=== PATIENT | male | born 1995 | race Caucasian/White ===

== ENCOUNTER 2018-10-04 07:54 | Outpatient (CLI) | payer OTHER ==
--- NOTE | 2018-10-04 09:20 | ULT ---
FOCUSED ULTRASOUND RIGHT BREAST: Date: 10/04/18 HISTORY: Pain and swelling. FINDINGS: Focused ultrasound of the retroareolar region obtained. In the area of palpable concern on the right, in the retroareolar region, there is thickened and slightly heterogeneous soft tissues, which primar ce appears to be in the region of the subcutaneous fat. There is no measureable mass. There is no sh adowing. There is also not finding which is consistent with gynecomastia. Etiology is thus nonspecifi c. IMPRESSION: Nonspecific soft tissue prominence and thickening of the subcutaneous fat in the area of concern. No measureable mass is appreciated. Etiology is uncertain. This may be inflammatory/infectious or post-t raumatic in nature. Follow-up imaging is essential to exclude a neoplastic process. CODE T. POS: OFF
== END 2018-10-04 07:55 | disposition home or self-care (01) ==
LOC: BICULT 07:54
DX: N64.4 Mastodynia (principal); N63.10 Unspecified lump in the right breast, unspecified quadrant

== ENCOUNTER 2018-10-07 13:25 | Outpatient (CLI) | payer OTHER | END 2018-10-07 13:26 | disposition home or self-care (01) | LOC: BICMAMMO 13:25 | DX: N64.4 Mastodynia (principal); N63.10 Unspecified lump in the right breast, unspecified quadrant; Z80.3 Family history of malignant neoplasm of breast | CPT/HCPCS: G0279 ==

== ENCOUNTER 2019-03-08 03:43 | Emergency (ER) | payer OTHER ==
[2019-03-08 04:13] LABS: #Basophils 0.1 thou/uL (0.0-0.2); #Eosinphils 0.2 thou/uL (0.0-0.7); #Lymphocytes 2.3 thou/uL (1.20-3.40); #Monocytes 0.7 thou/uL (0.11-0.59); #Neutrophils 7.4 thou/uL (1.40-6.50); %Basophils 0.7 % (0.0-1.0); %Eosinophils 1.7 % (0.0-10.0); %Lymphocytes 21.8 % (21.0-51.0); %Monocytes 6.1 % (0.0-10.0); %Neutrophils 69.6 % (42.0-75.0); Hemoglobin 15.5 g/dL (14.0-18.0); Mean Corpuscular HGB CONC 33.5 g/dL (32.0-36.0); Mean Corpuscular Hemoglobin 30.4 pg (27.0-31.0); Mean Corpuscular Volume 90.6 fL (78.0-98.0); Mean Platelet Volume 7.3 fL (7.4-10.4); Platelet Count 305 thou/uL (130-400); RBC Distribution Width 11.7 % (11.5-14.5); Red Blood Cell (RBC) Count 5.11 mill/uL (4.70-6.10); White Blood Cell (WBC) Count 10.6 thou/uL (4.8-10.8)
[2019-03-08 04:39] LABS: ALT (SGPT) 13 U/L (8-55); AST (SGOT) 19 U/L (5-34); Albumin 5.4 g/dL (3.5-5.0); Alkaline Phosphatase 68 U/L (40-150); Anion Gap 15 mmol/L (10-20); BUN (Urea Nitrogen) 12 mg/dL (8.9-20.6); Bilirubin, Total 0.4 mg/dL (0.2-1.2); Calc. Creatinine Clearance 0 mL/min (70-130); Calcium 10.7 mg/dL (7.8-10.44); Carbon Dioxide 27 mmol/L (22-29); Chloride 103 mmol/L (98-107); Estimated GFR-MDRD 77; Globulin 2.9 g/dL (2.4-3.5); Glucose 91 mg/dL (70-105); Lipase 34 U/L (8-78); Potassium 3.7 mmol/L (3.5-5.1); Protein, Total 8.3 g/dL (6.0-8.3); Sodium 141 mmol/L (136-145)
[2019-03-08 04:40] LABS: Bilirubin Negative (Negative); Blood, Urine Negative (Negative); Clarity TURBID (Clear); Glucose, Urine (Dipstick) Negative (Negative); Leukocyte Negative (Negative); Nitrite Negative (Negative); Protein, Urine (Dipstick) Negative (Neg-Trace); Urobilinogen 0.2 mg/dL (0.2-1.0)
[2019-03-08] MEDS ORDERED: Morphine 2 MG/ML SYRINGE ONE (04:48)
[2019-03-08] MEDS ORDERED: Ondansetron PF 4 MG/2 ML Vial ONE (04:48)
[2019-03-08] MEDS ORDERED: Ketorolac Tromethamine 30 MG/ML VIAL ONE (04:48)
[2019-03-08] MEDS ORDERED: Dicyclomine 20 MG TAB ONE (05:19)
[2019-03-08] MEDS ORDERED: Promethazine HCl 25 MG/ML VIAL ONE (05:19)
--- NOTE | 2019-03-08 06:37 | CT ---
CT ABDOMEN AND PELVIS WITH CONTRAST: INDICATIONS: Abdominal pain. COMPARISON: No prior comparison. FINDINGS: The lung bases are clear. No acute abnormality of the solid abdominal organs. There is no free air. The bowel is incompletely evaluated without enteric contrast. Nonspecific mild enlargement of mese nteric lymph nodes is present. No evidence of ascites. The abdominal aorta is normal in caliber. T he osseous structures are intact. IMPRESSION: 1. Mild nonspecific prominence of mesenteric lymph nodes. This can be seen in the setting of mesent екатерина adenitis. Correlate clinically. 2. Incomplete assessment of bowel without enteric contrast. POS: NWK
[2019-03-08] MEDS ORDERED: Fentanyl 100 MCG/2 ML VIAL ONE (07:00)
== END 2019-03-08 07:05 | disposition home or self-care (01) ==
LOC: ERS 03:43
DX: I88.0 Nonspecific mesenteric lymphadenitis (principal)
CPT/HCPCS: 74177; 80053; 81003; 83690; 85025; 96365; 96375; J1885; J2270; J2405; J2550; J3010

== ENCOUNTER 2019-03-14 10:38 | Emergency (ER) | payer OTHER ==
[2019-03-14 11:15] LABS: #Basophils 0.1 thou/uL (0.0-0.2); #Eosinphils 0.2 thou/uL (0.0-0.7); #Lymphocytes 2.3 thou/uL (1.20-3.40); #Monocytes 0.5 thou/uL (0.11-0.59); #Neutrophils 3.5 thou/uL (1.40-6.50); %Basophils 1.5 % (0.0-1.0); %Eosinophils 2.8 % (0.0-10.0); %Lymphocytes 35.1 % (21.0-51.0); %Monocytes 8.2 % (0.0-10.0); %Neutrophils 52.5 % (42.0-75.0); Hemoglobin 15.8 g/dL (14.0-18.0); Mean Corpuscular HGB CONC 32.8 g/dL (32.0-36.0); Mean Corpuscular Hemoglobin 29.3 pg (27.0-31.0); Mean Corpuscular Volume 89.2 fL (78.0-98.0); Platelet Count 313 thou/uL (130-400); RBC Distribution Width 11.5 % (11.5-14.5); White Blood Cell (WBC) Count 6.6 thou/uL (4.8-10.8)
[2019-03-14 11:30] LABS: Bilirubin Negative (Negative); Blood, Urine Negative (Negative); Clarity CLEAR (Clear); Glucose, Urine (Dipstick) Negative (Negative); Leukocyte Negative (Negative); Nitrite Negative (Negative); Protein, Urine (Dipstick) Negative (Neg-Trace); Specific Gravity, Urine 1.017 (1.002-1.036); Urobilinogen 0.2 mg/dL (0.2-1.0); pH, Urine 5.5 (5.0-9.0)
[2019-03-14 11:39] LABS: ALT (SGPT) 15 U/L (8-55); AST (SGOT) 19 U/L (5-34); Albumin 5.2 g/dL (3.5-5.0); Alkaline Phosphatase 67 U/L (40-150); Anion Gap 13 mmol/L (10-20); BUN (Urea Nitrogen) 11 mg/dL (8.9-20.6); Bilirubin, Total 0.8 mg/dL (0.2-1.2); CRP (Inflammatory) Less than 0.50 mg/dL (= or < 0.5); Calc. Creatinine Clearance 0 mL/min (70-130); Calcium 10.2 mg/dL (7.8-10.44); Carbon Dioxide 27 mmol/L (22-29); Chloride 101 mmol/L (98-107); Estimated GFR-MDRD 81; Globulin 2.9 g/dL (2.4-3.5); Glucose 85 mg/dL (70-105); Potassium 4.3 mmol/L (3.5-5.1); Protein, Total 8.1 g/dL (6.0-8.3); Sodium 137 mmol/L (136-145)
== END 2019-03-14 12:18 | disposition home or self-care (01) ==
LOC: ERS 10:38
DX: R19.7 Diarrhea, unspecified (principal); R10.9 Unspecified abdominal pain; R10.815 Periumbilic abdominal tenderness
CPT/HCPCS: 36415; 80053; 81003; 85025; 86140; 99284